=== PATIENT | male | born 1980 ===

== ENCOUNTER 2018-03-08 07:03 | Emergency (ER) | payer BC ==
[2018-03-08 07:15] VITALS: BP 132/80
[2018-03-08] MEDS ORDERED: Fluorescein Sod TOPICAL 0.6* 0.6 MG TEST OPHTHALMIC ONE (07:22)
--- NOTE | 2018-03-08 07:28 | UC ---
Eye Complaint HPI - HPI Summary HPI Summary: 37 yo male was using a chainsaw yesterdays After using it he thinks he got some wood chips/saw dust in his left eye when he wiped his brow no photophobia mild blurred vison mild pain and FB sensation under left upper lid - History of Current Complaint Chief Complaint: UCEye Stated Complaint: EYE COMPLAINT Time Seen by Provider: 03/08/18 07:15 Hx Obtained From: Patient Onset/Duration: Sudden Onset Timing: Constant Severity Initially: Moderate Severity Currently: Moderate Pain Intensity: 6 Pain Scale Used: 0-10 Numeric Location of Injury: Conjunctiva, Eye Lid (upper) Character: Foreign Body Sensation Aggravating Factor(s): Nothing Associated Signs And Symptoms: Positive: Drainage (Clear) Eyes: 1 - area pf florescein uptake - Risk Factors Penetrating Injury Risk Factor: Negative Globe Rupture Risk Factors: Negative Acute Glaucoma Risk Factors: Negative Optic Artery Occlusion Risk Factors: Negative - Allergies/Home Medications Allergies/Adverse Reactions: Allergies Allergy/AdvReac Type Severity Reaction Status Date / Time Penicillins Allergy Rash Verified 03/08/18 07:15 Home Medications: Home Medications NK [No Home Medications Reported] 03/08/18 [History Confirmed 03/08/18] PMH/Surg Hx/FS Hx/Imm Hx Previously Healthy: Yes - Surgical History Surgical History: None - Family History Known Family History: Positive: Hypertension - Social History Alcohol Use: Occasionally Substance Use Type: None Smoking Status (MU): Never Smoked Tobacco - Immunization History Most Recent Tetanus Shot: unknown Review of Systems Constitutional: Negative Skin: Negative Eyes: Blurred Vision, Eye Redness, Other - tearing ENT: Negative Respiratory: Negative Cardiovascular: Negative Gastrointestinal: Negative Genitourinary: Negative Motor: Negative Neurovascular: Negative Musculoskeletal: Negative Neurological: Negative Psychological: Negative Is Patient Immunocompromised?: No All Other Systems Reviewed And Are Negative: Yes Physical Exam Triage Information Reviewed: Yes Appearance: Well-Appearing, No Pain Distress, Well-Nourished Vital Signs: Initial Vital Signs Temp 98.1 F 03/08/18 07:09 Pulse 58 03/08/18 07:09 Resp 18 03/08/18 07:09 BP 132/80 03/08/18 07:09 Pulse Ox 99 03/08/18 07:09 Vital Signs Reviewed: Yes Eyes: Positive: Conjunctiva Inflamed, Other: - eomo/perrl, left upper lid cobblestoning ENT: Positive: Hearing grossly normal. Negative: Muffled voice, Hoarse voice Neck: Positive: Supple, Nontender Respiratory: Positive: Lungs clear, Normal breath sounds, No respiratory distress Cardiovascular: Positive: RRR, No Murmur Musculoskeletal: Positive: ROM Intact, No Edema Neurological: Positive: Alert Psychological Exam: Normal Skin Exam: Normal Eye Complaint Course/Dx - Differential Dx/Diagnosis Provider Diagnoses: left eye local allergic reaction. ? cornal foreign body vs abrasion (L) Discharge - Sign-Out/Discharge Documenting (check all that apply): Discharge - Discharge Plan Condition: Stable Disposition: HOME Referrals: Jasmeet Houston MD [Medical Doctor] - As Soon As Possible Additional Instructions: I suggest you see an inspector eyeglass frames today you may have a minute corneal FB [employer] should help with the localized ocular allergic symptoms
== END 2018-03-08 07:40 | disposition home or self-care (01) ==
LOC: UCEAST 07:03
DX: H53.8 Other visual disturbances (principal); H01.9 Unspecified inflammation of eyelid; T78.40XA Allergy, unspecified, initial encounter; X58.XXXA Exposure to other specified factors, initial encounter
CPT/HCPCS: 99202; G0463